=== PATIENT | male | born 1990 | race Caucasian/White ===

== ENCOUNTER 2018-09-21 13:41 | Inpatient (IN) | payer BC ==
[2018-09-21 15:51] VITALS: BMI 33.5
--- NOTE | 2018-09-21 19:36 | HP ---
CIWA Score Nausea/Vomitin Muscle Tremors: 3 Anxiety: 2 Agitation: 1-Slight > Activity Paroxysmal Sweats: 2 Orientation: 0-Oriented Tacttile Disturbances: 0-None Auditory Disturbances: 0-None Visual Disturbances: 0-None Headache: 2-Mild CIWA-Ar Total Score: 12 - Admission Criteria [facility]ASAS Guidelines: Admission for Medically Managed Detox: Requires at least one of the followin. CIWA greater than 12 2. Seizures within the past 24 hours 3. Delirium tremens within the past 24 hours 4. Hallucinations within the past 24 hours 5. Acute intervention needed for co occurring medical disorder 6. Acute intervention needed for co occurring psychiatric disorder 7. Severe withdrawal that cannot be handled at a lower level of care (continued vomiting, continued diarrhea, abnormal vital signs) requiring intravenous medication and/or fluids 8. Patient presents the following: CIWA greater than 12 Admission Criteria Met: Admission criteria met Admission ROS [facility] Chief Complaint: xanax withdrawal 28 yo with no medical problems, on methadone 80mg [facility] program, has been using benzo for about 8 years. Was prescribed Klonopin but his doctor left and then was asked to taper off in one month. Pt states has been getting xanax from the streets and feels like he needs to stop. Had one episode of seizure from stopping xanax. heroin- rarely 1 bag yesterday, in a methadone program THC- 1 gram/day Xanax- 4 mg/day DUR- no controlled substances Allergies/Adverse Reactions: Allergies Allergy/AdvReac Type Severity Reaction Status Date / Time No Known Allergies Allergy Verified 09/21/18 15:30 - Ebola screening Have you traveled outside of the country in the last 21 days: No (N) Have you had contact with anyone from an Ebola affected area: No Do you have a fever: No Patient History - Patient Medical History Hx Anemia: No Hx Asthma: No Hx Chronic Obstructive Pulmonary Disease (COPD): No Hx Cancer: No Hx Cardiac Disorders: No Hx Congestive Heart Failure: No Hx Hypertension: No Hx Hypercholesterolemia: No Hx Pacemaker: No HX Cerebrovascular Accident: No Hx Seizures: No Hx Dementia: No Hx Diabetes: No Hx Gastrointestinal Disorders: No Hx Liver Disease: No Hx Genitourinary Disorders: No Hx Sexually Transmitted Disorders: No Hx Renal Disease (ESRD): No Hx Thyroid Disease: No Hx Human Immunodeficiency Virus (HIV): No Hx Hepatitis C: No Hx Depression: Yes Hx Suicide Attempt: Yes (attempted X7 after return from [place], last attempt was 03/10) Hx Bipolar Disorder: Yes Hx Schizophrenia: No - Patient Surgical History Past Surgical History: Yes Hx Appendectomy: Yes (at age10) - PPD History Date: 04/02/14 - Smoking Cessation Smoking history: Former smoker Have you smoked in the past 12 months: Yes Aproximately how many cigarettes per day: 0 Hx Chewing Tobacco Use: No Initiated information on smoking cessation: Yes 'Breaking Loose' booklet given: 09/21/18 - Substances abused Alprazolam (Xanax) Substance route: Oral Frequency: Daily Amount used: 3 PILLS- 6MG Age of first use: 19 Date of last use: 09/21/18 Marijuana/Hashish Substance route: Oral Frequency: Daily Amount used: $30 Age of first use: 11 Date of last use: 09/21/18 Family Disease History - Family Disease History Family Disease History: Other: Brother (HEROIN/COCAINE) Admission Physical Exam [facility] - Vital Signs Vital Signs: Vital Signs - 24 hr 09/21/18 15:31 Temperature 97.8 F Pulse Rate 86 Respiratory 20 Rate Blood Pressure 135/100 - Physical General Appearance: Yes: Within Normal Limits HEENTM: Yes: Within Normal Limits, Hearing grossly Normal Respiratory: Yes: Within Normal Limits, Lungs Clear Neck: Yes: Within Normal Limits, No masses,lesions,Nodules Cardiology: Yes: Within Normal Limits, Regular Rhythm, Regular Rate Abdominal: Yes: Within Normal Limits, Normal Bowel Sounds Back: Yes: Within Normal Limits, Normal Inspection Musculoskeletal: Yes: Within Normal Limits, full range of Motion Extremities: Yes: Within Normal Limits, Normal Capillary Refill Neurological: Yes: Within Normal Limits, Fully Oriented, Alert Integumentary: Yes: Within Normal Limits, Normal Color - Diagnostic (1) Benzodiazepine dependence Current Visit: No Status: Acute (2) Methadone maintenance therapy patient Current Visit: No Status: Acute Breathalyzer - Breathalyzer Breathalyzer: 0 Urine Drug Screen - Test Device Lot number: [id number] Expiration date: 06/10/20 - Control Is test valid?: Yes - Results Drug screen NEGATIVE: No Urine drug screen results: THC-Marijuana, MOP-Opiates, MTD-Methadone, BZO- Benzodiazepines Inpatient Rehab Admission - Rehab Decision to Admit Inpatient rehab admission?: No
[2018-09-21] MEDS ORDERED: MAGNESIUM HYDROX 2400MG/30ML ORAL SUSPENSION 30 ML CUP PO PRN (19:47)
[2018-09-21] MEDS ORDERED: MAG HYDROX/AL HYDROX/SIMETH 30 ML UNIT-DOSE CUP PO PRN (19:47)
[2018-09-21] MEDS ORDERED: IBUPROFEN 400 MG TABLET (FP) PO PRN (19:47)
[2018-09-21] MEDS ORDERED: BISMUTH SUBSALICYLATE 524 MG/30 ML UD PO PRN (19:47)
[2018-09-21] MEDS ORDERED: METHOCARBAMOL 500 MG TABLET PO PRN (19:47)
[2018-09-21] MEDS ORDERED: ACETAMINOPHEN 325 MG TABLET (FP) PO PRN ×2 (19:47)
[2018-09-21] MEDS ORDERED: MENTHOL/PHENOL 1 EACH UD MM PRN (19:47)
[2018-09-21] MEDS ORDERED: MAGNESIUM CITRATE 300 ML BOTTLE PO PRN (19:47)
[2018-09-21] MEDS ORDERED: MELATONIN 5 MG TABLETS PO PRN (19:47)
[2018-09-21] MEDS: diazePAM 5 MG TABLET PO PRN (20:41)
[2018-09-21] MEDS: THIAMINE HCL 100 MG TABLET (FP) PO SCH (23:42)
[2018-09-21] MEDS: diazePAM 5 MG TABLET PO SCH (23:42)
[2018-09-22] MEDS: diazePAM 5 MG TABLET PO SCH ×3 (06:09→22:26)
[2018-09-22] MEDS ORDERED: METHADONE HCL 10 MG TABLET PO ONE (09:24)
[2018-09-22] MEDS ORDERED: METHADONE HCL 40 MG DISPERSABLE TABLET PO ONE (09:44)
[2018-09-22] MEDS: diazePAM 5 MG TABLET PO PRN ×2 (10:21→17:54)
[2018-09-22] MEDS: cloNIDine HCL 0.1 MG TABLET PO PRN (10:21)
[2018-09-22] MEDS: PRENATAL VITAMINS W/ FOLIC ACID TABLET (FP) PO SCH (10:21)
[2018-09-22 12:21] LABS: HEMATOCRIT 39.7 % (35.4-49); HEMOGLOBIN 13.4 GM/dL (11.7-16.9); MCH 29.3 pg (25.7-33.7); MCHC 33.8 g/dl (32.0-35.9); MEAN CELL VOLUME 86.6 fl (80-96); RBC 4.58 M/mm3 (4.00-5.60); RDW 13.8 % (11.9-15.9); WHITE BLOOD COUNT 7.7 K/mm3 (4.0-10.0)
--- NOTE | 2018-09-22 12:25 | PN ---
[facility] CIWA - CIWA Score Nausea/Vomitin-Mild Nausea/No Vomiting Muscle Tremors: 2 Anxiety: 1-Mildly Anxious Agitation: 3 Paroxysmal Sweats: 1-Minimal Palms Moist Orientation: 0-Oriented Tacttile Disturbances: 0-None Auditory Disturbances: 0-None Visual Disturbances: 0-None Headache: 0-None Present CIWA-Ar Total Score: 8 [facility] Progress Note (SOAP) Subjective: pt still with withdrawal Sx- requesting clonidine- O: Vital Signs - 24 hr 09/21/18 09/21/18 09/22/18 15:31 21:36 00:30 Temperature 97.8 F 97.9 F Pulse Rate 86 55 L Respiratory 20 18 18 Rate Blood Pressure 135/100 154/98 09/22/18 09/22/18 09/22/18 03:30 08:05 09:27 Temperature 97.9 F 98.1 F Pulse Rate 68 61 Respiratory 18 18 18 Rate Blood Pressure 138/96 168/77 a/p: Benzo withdrawal protocol, pt on MAT methadone clonidine ordered- will also help with high BP
[2018-09-22 12:27] LABS: PLATELET COUNT 261 K/MM3 (134-434)
[2018-09-22 12:34] LABS: ALBUMIN 4.6 g/dl (3.4-5.0); BILIRUBIN,TOTAL 0.4 mg/dL (0.2-1); BLOOD UREA NITROGEN 10.8 mg/dL (7-18); CALCIUM 9.1 mg/dL (8.5-10.1); CREATININE 0.8 mg/dL (0.55-1.3); POTASSIUM 4.1 mmol/L (3.5-5.1); TOT PROT 7.8 g/dl (6.4-8.2)
[2018-09-22] MEDS: hydrOXYzine PAMOATE 25 MG CAPSULE (FP) PO PRN ×2 (17:54→22:26)
[2018-09-22 18:22] LABS: PH,URINE 5.5 (5.0-8.0); URINE APPEARANCE CLOUDY; URINE BILIRUBIN NEGATIVE (NEGATIVE); URINE COLOR YELLOW; URINE GLUCOSE (UA) NEGATIVE (NEGATIVE); URINE KETONE NEGATIVE (NEGATIVE); URINE LEUK ESTERASE NEGATIVE (NEGATIVE); URINE NITRITE NEGATIVE (NEGATIVE); URINE PROTEIN NEGATIVE (NEGATIVE); URINE UROBILINOGEN 0.2 mg/dL (0.2-1.0)
[2018-09-22] MEDS: THIAMINE HCL 100 MG TABLET (FP) PO SCH (22:27)
[2018-09-23] MEDS: METHADONE HCL 40 MG DISPERSABLE TABLET PO SCH (06:09)
[2018-09-23] MEDS: diazePAM 5 MG TABLET PO SCH ×2 (10:10→22:13)
[2018-09-23] MEDS: PRENATAL VITAMINS W/ FOLIC ACID TABLET (FP) PO SCH (10:10)
[2018-09-23] MEDS: hydrOXYzine PAMOATE 25 MG CAPSULE (FP) PO PRN ×2 (10:11→22:12)
--- NOTE | 2018-09-23 10:15 | PN ---
S CIWA - CIWA Score Nausea/Vomitin-No Nausea/No Vomiting Muscle Tremors: 2 Anxiety: 1-Mildly Anxious Agitation: 1-Slight > Activity Paroxysmal Sweats: No Perspiration Orientation: 0-Oriented Tacttile Disturbances: 0-None Auditory Disturbances: 0-None Visual Disturbances: 0-None Headache: 0-None Present CIWA-Ar Total Score: 4 [facility] Progress Note (SOAP) Subjective: anxiety Objective: 09/23/18 10:14 Vital Signs Temperature 98.1 F 09/23/18 09:40 Pulse Rate 55 L 09/23/18 09:40 Respiratory Rate 16 09/23/18 09:40 Blood Pressure 139/87 09/23/18 09:40 O2 Sat by Pulse Oximetry (%) Laboratory Tests 09/22/18 09/22/18 09/22/18 07:30 07:30 07:30 WBC 7.7 RBC 4.58 Hgb 13.4 Hct 39.7 MCV 86.6 MCH 29.3 MCHC 33.8 RDW 13.8 Plt Count 261 MPV 8.0 Sodium 136 Potassium 4.1 Chloride 101 Carbon Dioxide 28 Anion Gap 7 L BUN 10.8 Creatinine 0.8 Est GFR (CKD-EPI)AfAm 138.93 Est GFR (CKD-EPI)NonAf 119.87 Random Glucose 87 Calcium 9.1 Total Bilirubin 0.4 AST 16 ALT 36 Alkaline Phosphatase 77 Total Protein 7.8 Albumin 4.6 Urine Color Urine Appearance Urine pH Ur Specific [place] Urine Protein Urine Glucose (UA) Urine Ketones Urine Blood Urine Nitrite Urine Bilirubin Urine Urobilinogen Ur Leukocyte Esterase RPR Titer Nonreactive 09/22/18 11:53 WBC RBC Hgb Hct MCV MCH MCHC RDW Plt Count MPV Sodium Potassium Chloride Carbon Dioxide Anion Gap BUN Creatinine Est GFR (CKD-EPI)AfAm Est GFR (CKD-EPI)NonAf Random Glucose Calcium Total Bilirubin AST ALT Alkaline Phosphatase Total Protein Albumin Urine Color Yellow Urine Appearance Cloudy Urine pH 5.5 Ur Specific [place] 1.020 Urine Protein Negative Urine Glucose (UA) Negative Urine Ketones Negative Urine Blood Negative Urine Nitrite Negative Urine Bilirubin Negative Urine Urobilinogen 0.2 Ur Leukocyte Esterase Negative RPR Titer [id number] ambulating no acute distress Assessment: 09/23/18 10:15 mild withdrawal sx Plan: continue detox increase fluids d/c in am
[2018-09-23] MEDS: diazePAM 5 MG TABLET PO PRN (15:04)
[2018-09-23] MEDS: THIAMINE HCL 100 MG TABLET (FP) PO SCH (22:13)
[2018-09-24] MEDS: METHADONE HCL 40 MG DISPERSABLE TABLET PO SCH (05:33)
[2018-09-24] MEDS ORDERED: diazePAM 5 MG TABLET PO SCH (06:00)
[2018-09-24] MEDS: hydrOXYzine PAMOATE 25 MG CAPSULE (FP) PO PRN (09:02)
[2018-09-24] MEDS: cloNIDine HCL 0.1 MG TABLET PO PRN (09:02)
[2018-09-24 09:32] VITALS: BP 154/99; PULSE 77; TEMP 98.8
[2018-09-24] MEDS: PRENATAL VITAMINS W/ FOLIC ACID TABLET (FP) PO SCH (10:39)
[2018-09-24] MEDS ORDERED: amLODIPine BESYLATE 5 MG TABLET (FP) PO ONE (11:02)
--- NOTE | 2018-09-24 12:14 | DS ---
[facility] Detox Discharge Summary Admission Date: 09/21/18 Discharge Date: 09/24/18 - History Present History: Alcohol Dependence, Cocaine Dependence, Sedative Dependence, MMTP - Physical Exam Results Vital Signs: Vital Signs Temperature 98.8 F 09/24/18 09:31 Pulse Rate 77 09/24/18 09:31 Respiratory Rate 18 09/24/18 09:31 Blood Pressure 154/99 09/24/18 09:31 O2 Sat by Pulse Oximetry (%) - Treatment Hospital Course: Detox Protocol Followed, Detoxed Safely, Responded well, Discharged Condition Good - Medication Discharge Medications: Ambulatory Orders Methadone [Dolophine -] 80 mg PO DAILY 09/21/18 - Diagnosis (1) HTN (hypertension) Current Visit: Yes Status: Chronic Qualifiers: Hypertension type: essential hypertension Qualified Code(s): I10 - Essential (primary) hypertension (2) Alcohol abuse Current Visit: No Status: Chronic (3) Benzodiazepine dependence Current Visit: No Status: Chronic (4) Cocaine dependence Current Visit: No Status: Acute (5) Methadone maintenance therapy patient Current Visit: Yes Status: Chronic - AMA Did Patient Leave Against Medical Advice: No
== END 2018-09-24 12:32 | disposition home or self-care (01) | DRG 773 ==
LOC: YASAS 13:41 → Y6N 20:05
PROVIDERS: ADMIT Surgery; ATTEND Surgery
PROC: HZ2ZZZZ Detoxification Services for Substance Abuse Treatment (ICD-10-PCS; principal; 2018-09-21)
DX: F10.230 Alcohol dependence with withdrawal, uncomplicated (principal); F13.230 Sedative, hypnotic or anxiolytic dependence with withdrawal, uncomplicated; F11.20 Opioid dependence, uncomplicated; F14.20 Cocaine dependence, uncomplicated; F31.9 Bipolar disorder, unspecified; I10 Essential (primary) hypertension; Z91.5 Personal history of self-harm
CPT/HCPCS: 36415; 80053; 81003; 85027; 86593; J0735